=== PATIENT | female | born 1965 | race Caucasian/White ===

== ENCOUNTER → 2016-12-29 | Outpatient (CLI) | payer OTHER ==
[~2016-12-29] VITALS: Ht 165.1 cm; Wt 90.9 kg
[~2016-12-29] MED LIST: ASPIR 8181 M1 PO; CRESTOR20 MG PO; FISH OIL300 MG PO; WOMEN'S DAILY1 EAC2 PO
== END | disposition home or self-care (01) ==
LOC: AMB 09:59
PROC: 0DBE8ZZ Excision of Large Intestine, Via Natural or Artificial Opening Endoscopic (ICD-10-PCS; principal; 2016-12-29)
DX: Z12.11 Encounter for screening for malignant neoplasm of colon (principal); D12.0 Benign neoplasm of cecum; D12.4 Benign neoplasm of descending colon; K64.9 Unspecified hemorrhoids; Z86.718 Personal history of other venous thrombosis and embolism; E78.5 Hyperlipidemia, unspecified; Z79.82 Long term (current) use of aspirin
CPT/HCPCS: 88305; B4087; J2250; J3010